=== PATIENT | female | born 1965 | race Hispanic/Latino ===

== ENCOUNTER 2017-09-07 13:28 | Emergency (ER) | payer BC ==
[~2017-09-07] VITALS: Ht 149.9 cm; Wt 77.1 kg
[2017-09-07] MEDS ORDERED: KETOROLAC TROMETHAMINE 30 MG/ML VIAL IV STA (13:38)
[2017-09-07 14:19] LABS: BASOPHILS # (AUTO) 0.1 (0.0-0.1); BASOPHILS % 1.1 % (0.0-1.0); EOSINOPHILS # (AUTO) 0.2 (0.0-0.4); EOSINOPHILS % 2.7 % (0.0-6.0); HEMATOCRIT 40.7 % (34.2-44.1); HEMOGLOBIN 13.4 g/dL (12.0-16.0); LYMPHOCYTES # (AUTO) 2.7 (1.0-3.2); MEAN CORPUSCULAR HEMOGLOBIN 30.7 pg (28-32); MEAN CORPUSCULAR HGB CONC 32.9 g/dL (31-35); MEAN CORPUSCULAR VOLUME 93.3 fL (81-99); MONOCYTES % 11.5 % (4.4-11.3); NEUTROPHILS # (AUTO) 4.3 (2.1-6.9); NEUTROPHILS % 52.3 % (38.7-80.0); PLATELET COUNT 299 x10e3/uL (140-360); RED BLOOD COUNT 4.36 x10e6/uL (3.6-5.1); RED CELL DISTRIBUTION WIDTH 12.5 % (11.7-14.4)
[2017-09-07 14:28] LABS: PROTHROMBIN TIME 12.4 seconds (11.9-14.5)
[2017-09-07 14:29] LABS: PARTIAL THROMBOPLASTIN TIME 27.5 seconds (23.8-35.5)
[2017-09-07 14:36] LABS: ALANINE AMINOTRANSFERASE 41 IU/L (0-55); ALBUMIN/GLOBULIN RATIO 1.2 (0.8-2.0); ALKALINE PHOSPHATASE 68 IU/L (40-150); ANION GAP 13.7 mmol/L (8-16); BLOOD UREA NITROGEN 19 mg/dL (7-26); BUN/CREATININE RATIO 28 (6-25); CALCIUM 9.3 mg/dL (8.4-10.2); CARBON DIOXIDE 24 mmol/L (22-29); CHLORIDE 107 mmol/L (98-107); CREATINE KINASE 80 IU/L (29-168); CREATININE, SERUM 0.67 mg/dL (0.57-1.11); EST GLOMERULAR FILTRATION RATE > 60 ML/MIN (60-); GLUCOSE 102 mg/dL (74-118); POTASSIUM 3.7 mmol/L (3.5-5.1); SODIUM 141 mmol/L (136-145)
--- NOTE | 2017-09-07 14:44 | Diagnostic Imaging Report ---
PROCEDURE: Frontal and lateral views of the chest. COMPARISON: None. INDICATIONS: CHEST PAIN FINDINGS: Lines/tubes: None. Lungs: The lungs are well inflated and clear. There is no evidence of pneumonia or pulmonary edema. Pleura: There is no pleural effusion or pneumothorax. Heart and mediastinum: The heart and the mediastinum are normal. Bones: No acute bony abnormality. Gastric Lap band partially visualized. IMPRESSION: 1. No acute cardiopulmonary disease. Matt Reddy M.D. Dictated by: Matt Reddy M.D. on 09/07/2017 at 14:45 Electronically approved by: Matt Reddy M.D. on 09/07/2017 at 14:45
[2017-09-07] MEDS ORDERED: NAPROSYN500 MG PO (16:01)
[2017-09-07 16:03] VITALS: BP 147/78
[2017-09-07] MEDS ORDERED: CYCLOBENZAPRINE5 MG PO (16:03)
== END 2017-09-07 16:18 | disposition home or self-care (01) ==
LOC: ER 13:28
DX: R07.89 Other chest pain (principal); R06.00 Dyspnea, unspecified; I10 Essential (primary) hypertension
CPT/HCPCS: 36415; 71046; 80053; 82550; 82553; 84484; 85025; 85379; 85610; 85730; 93005; 96374; 99284; J1885

== ENCOUNTER 2021-05-26 13:37 | Outpatient (RCR) | payer BC ==
[~2021-05-26 13:37] MED LIST: CYCLOBENZAPRINE5 MG PO; NAPROSYN500 MG PO
== END 2021-06-02 ==
LOC: PT 13:37
PROVIDERS: ATTEND Neurological Surgery
DX: M51.24 Other intervertebral disc displacement, thoracic region (principal); M62.81 Muscle weakness (generalized)

== ENCOUNTER → 2023-11-14 | Day surgery (SDC) | payer BC ==
[~2023-11-14] MED LIST changes: +ACETAMINOPHEN 1000 MG/100 ML IV ONE; +CRESTOR10 MG PO; +DEXAMETHASONE SOD PHOS INJ 4 MG/ML SDV ONE; +FAMOTIDINE 20 MG/2 ML VIAL IV ONE; +FENTANYL CITRATE/PF 100MCG/2 ML INJ ONE; +LIDOCAINE HCL 2% LOCAL INJ 5 ML SDV VIAL INJ ONE; +LISINOPRIL-HCT1 EACH PO; +MELOXICAM7.5 MG PO; +ONDANSETRON HCL INJ 2MG/ML 2ML 2 MG/ML VIAL ONE; +PROPOFOL IV EMULSION 10 MG/ML 20 ML VIAL ONE; +SEVOFLURANE INHAL SOLN 250 ML PEN BTL ONE
[2023-11-14] MEDS: LACTATED RINGER'S 1,000 ML ONE (07:11)
[2023-11-14] MEDS: FENTANYL CITRATE/PF 100MCG/2 ML INJ ONE (08:44)
[2023-11-14] MEDS: ACETAMINOPHEN/CODEINE 300MG - 30MG TAB ONE (09:20)
[2023-11-14] MEDS: KETOROLAC TROMETHAMINE 30 MG/ML VIAL ONE (09:40)
[2023-11-14 10:15] VITALS: BP 190/89; PULSE 75; RESP 16; O2SAT 96
== END | disposition home or self-care (01) ==
LOC: OR 06:59
PROVIDERS: ATTEND Specialist
DX: G56.03 Carpal tunnel syndrome, bilateral upper limbs (principal); I10 Essential (primary) hypertension; Z01.810 Encounter for preprocedural cardiovascular examination; Z79.1 Long term (current) use of non-steroidal anti-inflammatories (NSAID); Z79.899 Other long term (current) drug therapy
CPT/HCPCS: 29848; 93005; J0131; J0690; J1100; J1885; J2001; J2405; J2704; J3010; J7121

== ENCOUNTER 2024-01-03 08:37 | Emergency (ER) | payer BC ==
[~2024-01-03] VITALS: Ht 149.9 cm; Wt 77.1 kg
[~2024-01-03 08:37] MED LIST changes: -ACETAMINOPHEN 1000 MG/100 ML IV ONE; -DEXAMETHASONE SOD PHOS INJ 4 MG/ML SDV ONE; -FAMOTIDINE 20 MG/2 ML VIAL IV ONE; -FENTANYL CITRATE/PF 100MCG/2 ML INJ ONE; -LIDOCAINE HCL 2% LOCAL INJ 5 ML SDV VIAL INJ ONE; -ONDANSETRON HCL INJ 2MG/ML 2ML 2 MG/ML VIAL ONE; -PROPOFOL IV EMULSION 10 MG/ML 20 ML VIAL ONE; -SEVOFLURANE INHAL SOLN 250 ML PEN BTL ONE
[2024-01-03 08:46] VITALS: PULSE 85; RESP 17; TEMP 98.4; O2SAT 96
== END 2024-01-03 11:01 | disposition home or self-care (01) ==
LOC: ER 08:44
DX: S39.82XA Other specified injuries of lower back, initial encounter (principal); W06.XXXA Fall from bed, initial encounter; Y92.013 Bedroom of single-family (private) house as the place of occurrence of the external cause
CPT/HCPCS: 72220; 99283

== ENCOUNTER 2024-08-20 22:02 | Emergency (ER) | payer BC ==
[~2024-08-20] VITALS: Ht 149.9 cm; Wt 77.1 kg
[2024-08-20 22:15] VITALS: TEMP 98.3
[2024-08-20] MEDS ORDERED: FAMOTIDINE 20 MG/2 ML VIAL IV STA (22:20)
[2024-08-20] MEDS ORDERED: DIPHENHYDRAMINE HCL INJ 50 MG/ML VIAL ONE (22:20)
[2024-08-20] MEDS ORDERED: FAMOTIDINE 20 MG/2 ML VIAL IV ONE (22:20)
[2024-08-20] MEDS: DIPHENHYDRAMINE HCL INJ 50 MG/ML VIAL IV ONE (22:27)
[2024-08-20] MEDS: METHYLPREDNISOLONE SOD SUCC 125 MG/2ML VIAL IV ONE (22:27)
[2024-08-20] MEDS: FAMOTIDINE 20 MG/2 ML VIAL IV STA (22:38)
[2024-08-21 00:39] VITALS: PULSE 68; RESP 18; O2SAT 97
== END 2024-08-21 00:44 | disposition home or self-care (01) ==
LOC: ER 22:15
DX: L29.9 Pruritus, unspecified (principal); L53.8 Other specified erythematous conditions; T78.40XA Allergy, unspecified, initial encounter; I10 Essential (primary) hypertension; E78.5 Hyperlipidemia, unspecified; M54.9 Dorsalgia, unspecified; G89.29 Other chronic pain; M43.22 Fusion of spine, cervical region
CPT/HCPCS: 99283; J1200; J2919